=== PATIENT | female | born 1975 | race Caucasian/White ===

== ENCOUNTER 2017-09-22 18:38 | Emergency (ER) | payer SELFPAY ==
[~2017-09-22] VITALS: Ht 154.9 cm; Wt 46.0 kg
[~2017-09-22 18:38] MED LIST: CYCL1PAK PO; LEVA500T PO; LORTA5 PO
[2017-09-22 18:39] VITALS: BP 121/59; PULSE 72; RESP 16; TEMP 98.4; O2SAT 100
--- NOTE | 2017-09-22 19:50 | PD ---
HPI Chief Complaint: Injury Time Seen by Provider: 19:45 Travel History International Travel<30 days: No Contact w/Intl Traveler<30days: No Traveled to known affect area: No History of Present Illness HPI Patient comes in complaining of left foot pain that began earlier today when a small sledgehammer fell off shelf landing on her foot. Patient reports having throbbing pain over the dorsal aspect of her left foot that radiates proximally and distally. Patient has been applying ice and using [id number] pain reliever with minimal relief of her symptoms. Pain is worse with palpation and walking. 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) Sleep Apnea: No ?: Not LMP: 09/15/17 Past Surgical History Abdominal Surgery: No AICD: No Arteriovenous Shunt: No Cardiac Surgery: No Ear Surgery: No Endocrine Surgery: No Eye Surgery: No Genitourinary Surgery: No Gynecologic Surgery: Yes (partial cervical resetion 10 yrs ago) Insulin Pump: No Joint Replacement: No Oral Surgery: No Pacemaker: No Thoracic Surgery: No Social History Tobacco Use: Yes Substance Use: Yes (marijuana) Allergies-Medications (Allergen,Severity, Reaction): Coded Allergies: Sulfa (Sulfonamide Antibiotics) (Unverified Allergy, Severe, 09/22/17) Reported Meds & Prescriptions Reported Meds & Active Scripts Active Naprosyn (Naproxen) 500 Mg Tab 500 Mg PO Q12HR PRN Cyclobenzaprinepax 10 & 0.0375-5 mg & % (Tteuisfobxllqvy-Kmglwdwsp-Emzb) 10 Mg Tab 10 Mg PO Q8H PRN [place] 5-325 mg (Hydrocodone-Acetaminophen 5-325 mg) 1 Tab 1-2 Tab PO Q4H PRN Levaquin 500 Mg Tab (Levofloxacin) 500 Mg Tab 500 Mg PO DAILY@07 Review of Systems Except as stated in HPI: all other systems reviewed are Neg Physical Exam Narrative GENERAL: Well-developed, well nourished, in no acute distress, and non-ill appearing. SKIN: Focused skin assessment warm and dry. Contusion noted dorsal aspect of left foot is tender to palpation. There is no crepitus or step-off. HEAD: Atraumatic. Normocephalic. EYES: Pupils equal and round. EOMI. No scleral icterus. No injection or drainage. ENT: No nasal bleeding or discharge. Mucous membranes pink and moist. NECK: Trachea midline. Supple. No nuclear rigidity. CARDIOVASCULAR: Dorsal pulses 2+, intact, and equal bilaterally. Capillary refill less than 2 seconds. RESPIRATORY: No accessory muscle use. No respiratory distress. MUSCULOSKELETAL: No obvious deformities. No clubbing. No cyanosis. No edema. Full range of motion. Ankle: Neagative anterior draw and Oneill test. Negative Yamilet's sign. No laxity noted with passive inversion and eversion of BL ankles. Negative squeeze test. Pulses equal BL distal to injury. Capillary refill less than 2 seconds distal to injury and equal BL. Sensation equal BL 1st web space. FROM of toes distal to injury and equal BL. NV intact distal to injury and equal BL. Dorsal pulses equal BL. Patient reports tenderness to palpation over dorsal aspect of left foot over area of contusion. NEUROLOGICAL: Awake and alert. No obvious cranial nerve deficits. Motor grossly within normal limits. Normal speech. PSYCHIATRIC: Appropriate mood and affect; insight and judgment normal. Data Data Last Documented VS Vital Signs Date Time Temp Pulse Resp B/P (MAP) Pulse Ox O2 Delivery O2 Flow Rate FiO2 09/22/17 20:26 09/22/17 18:39 98.4 72 16 100 Room Air Orders Orders Foot, Complete ([id number]) (09/22/17 ) Ice/Cold Pack (09/22/17 19:00) Splint Or Brace Apply/Monitor (09/22/17 20:09) Ed Discharge Order (09/22/17 20:11) MDM Medical Decision Making Medical Screen Exam Complete: Yes Emergency Medical Condition: Yes Differential Diagnosis Fracture, contusion, sprain, other Narrative Course The patient appears to have suffered a contusion of the foot. There is no clinical evidence to suspect bony injury by exam. Radiographic examination revealed no fracture seen at this time. The patient has full range of motion on active and passive motions. There is no significant edema. There is no proximal or distal joint effusion. The distal extremity appears neurovascularly intact, without evidence of neurovascular injury nor compartment syndrome. Tendon exam also was intact. The patient was discharged on pain medication instructions and given warnings for vascular compromise. The patient is to follow up with their regular physician. The patient agrees with plan. Patient in no obvious distress upon re-evaluation. All pertinent Radiology result(s) discussed with patient. Patient was asked if they wanted to speak to my attending, which the patient did not wish to do at this time. Any questions/ concerns in reference to patient diagnosis/condition discussed and clarified prior to patient's discharge. Reinforced sheer importance of close follow up with patient's primary physician or primary care clinic. Instructed patient to return to ED immediately, if symptoms return/worsen. Patient showed understanding of above instructions. Further instructions and recommendations were detailed in discharge paperwork. Patient ambulated without difficulty out of ED at discharge. Diagnosis Primary Impression: Contusion of left foot, initial encounter Patient Instructions: Contusion in Adults (ED), General Instructions Additional Instructions: Follow-up with your primary care physician and/or skin carver next week for reevaluation. Take all medication as prescribed. Apply ice to affected area 20 minutes prior is negative for pain. Wear yohan wrap and use postop shoe as needed for comfort. Return to the emergency department if symptoms get worse. Med/Other Pt SpecificInfo: Prescription(s) given Scripts Naproxen (Naprosyn) 500 Mg Tab 500 MG PO Q12HR Y for PAIN SCALE 1 TO 10, #14 TAB 0 Refills Prov: Elva Elder DO 09/22/17 Disposition: 01 DISCHARGE HOME Condition: Stable Rian Arizmendi Sep 22, 2017 19:50
--- NOTE | 2017-09-22 19:56 | RADRPT ---
EXAM DATE/TIME: 09/22/2017 19:13 [facility] COMPARISON: No previous studies available for comparison. INDICATIONS : Left foot pain, hammer fell on foot. MEDICAL HISTORY : None. SURGICAL HISTORY : None. ENCOUNTER: Initial ACUITY: 1 day PAIN SCORE: 8/10 LOCATION: Left dorsal foot FINDINGS: Three view examination of the left foot demonstrates no soft tissue swelling, dislocation, or fractur e. The tarsal bones appear intact. The interphalangeal and metatarsophalangeal joints are intact. The calcaneus is intact. Bony mineralization is normal. CONCLUSION: Unremarkable examination of the left foot. Lenny Roper Jr., MD on September 22, 2017 at 19:54 Board Certified Radiologist. This report was verified electronically.
[2017-09-22] MEDS ORDERED: NAPR500 PO (20:11)
== END 2017-09-22 20:35 | disposition home or self-care (01) ==
LOC: NEPK 18:38
DX: S90.32XA Contusion of left foot, initial encounter (principal); W20.8XXA Other cause of strike by thrown, projected or falling object, initial encounter
CPT/HCPCS: 73630; 99283; L3260